=== PATIENT | female | born 1990 | race Caucasian/White ===

== ENCOUNTER 2018-02-09 15:20 | Emergency (ER) | payer MEDICAID, OTHER ==
[~2018-02-09] VITALS: Ht 175.3 cm; Wt 96.8 kg
[~2018-02-09 15:20] MED LIST: CLA10T PO; NAPR-232 PO; OMEP40CA37 PO; PRED10TA PO
[2018-02-09] MEDS ORDERED: normal saline 1000ML IV soln IV ONE (15:45)
[2018-02-09 16:42] LABS: BASOPHILS % (AUTO) 0.1 % (0-1); EOSINOPHILS % (AUTO) 0 % (0-6); HEMATOCRIT 37.4 % (35.0-45.0); HEMOGLOBIN 12.4 g/dl (12.0-16.0); LYMPHOCYTES # (AUTO) 0.5 X10'3 (1.1-4.8); LYMPHOCYTES % (AUTO) 8.5 % (21-51); MEAN CORPUSCULAR HEMOGLOBIN 27.7 PG (27.0-31.0); MEAN CORPUSCULAR HGB CONC 33.2 % (33.0-36.5); MEAN CORPUSCULAR VOLUME 83.4 FL (78-98); MEAN PLATELET VOLUME 8.1 FL (7.4-10.4); MONOCYTES # (AUTO) 0.9 X10'3 (0-0.9); MONOCYTES % (AUTO) 15.1 % (2-12); NEUTROPHILS # (AUTO) 4.7 X10'3 (1.8-7.7); NEUTROPHILS % (AUTO) 76.3 % (42-75); PLATELET COUNT 255 X10'3 (140-440); RED BLOOD COUNT 4.48 X10'6 (4.20-5.60); RED CELL DISTRIBUTION WIDTH 14.3 % (11.5-14.5); WHITE BLOOD COUNT 6.2 X10'3 (4.5-11.0)
[2018-02-09 16:55] LABS: ALANINE AMINOTRANSFERASE 25 U/L (12-78); ALKALINE PHOSPHATASE 68 IU/L (46-116); ANION GAP 15 (8-16); ASPARTATE AMINO TRANSFERASE 18 U/L (10-37); BILIRUBIN,TOTAL 0.2 MG/DL (0.1-1.0); BLOOD UREA NITROGEN 13 MG/DL (7-18); BUN/CREATININE RATIO 18.3 (6.6-38.0); CALCIUM 8.8 MG/DL (8.5-10.1); CHLORIDE 100 MMOL/L (99-107); CREATININE 0.71 MG/DL (0.40-0.90); GLUCOSE 113 MG/DL (70-104); SODIUM 138 MMOL/L (135-145); TOTAL CARBON DIOXIDE 22.8 MMOL/L (24-32); TOTAL PROTEIN 7.9 G/DL (6.4-8.2); eGFR > 90 ML/MIN
[2018-02-09] MEDS ORDERED: acetaminophen 325mg tablet PO STA (17:01)
[2018-02-09] MEDS ORDERED: potassium Cl oral solution 20 MEQ/15 ML PO ONE (17:35)
[2018-02-09] MEDS ORDERED: oseltamivir phos 75mg capsule PO ONE (17:35)
[2018-02-09] MEDS ORDERED: TAM75C PO (18:41)
[2018-02-09 20:09] VITALS: BP 129/70
== END 2018-02-09 20:10 | disposition home or self-care (01) ==
LOC: ER 15:21
DX: J11.1 Influenza due to unidentified influenza virus with other respiratory manifestations (principal); J45.909 Unspecified asthma, uncomplicated; R19.7 Diarrhea, unspecified; R11.2 Nausea with vomiting, unspecified; Z56.0 Unemployment, unspecified
CPT/HCPCS: 36415; 71045; 80053; 83605; 85025; 87040; 87502; 87503; 93005; 99284

== ENCOUNTER 2019-11-21 12:21 | Emergency (ER) | payer MEDICAID ==
[~2019-11-21] VITALS: Ht 175.3 cm; Wt 113.0 kg
[~2019-11-21 12:21] MED LIST changes: +OMEP40CA13 PO; -OMEP40CA37 PO
[2019-11-21 12:54] VITALS: BP 173/108
== END 2019-11-21 15:03 | disposition home or self-care (01) ==
LOC: ER 12:22
DX: S99.811A Other specified injuries of right ankle, initial encounter (principal); S61.212A Laceration without foreign body of right middle finger without damage to nail, initial encounter; M25.571 Pain in right ankle and joints of right foot; M25.561 Pain in right knee; J45.909 Unspecified asthma, uncomplicated; Z56.0 Unemployment, unspecified; Z79.899 Other long term (current) drug therapy; X58.XXXA Exposure to other specified factors, initial encounter; Y93.89 Activity, other specified; Y92.89 Other specified places as the place of occurrence of the external cause; Y99.8 Other external cause status
CPT/HCPCS: 73564; 73610; 99284

== ENCOUNTER 2021-06-30 00:51 | Emergency (ER) | payer MEDICAID, OTHER ==
[~2021-06-30] VITALS: Ht 175.3 cm; Wt 95.5 kg
[~2021-06-30 00:51] MED LIST changes: +ALBU18HF2 INH; -OMEP40CA13 PO; +OMEP40CA21 PO
[2021-06-30] MEDS ORDERED: diphenhydrAMINE 25mg capsule PO ONE (01:10)
--- NOTE | 2021-06-30 01:38 | NUR ---
pt stated im just going to have my take me home. pt education given on etoh use. pt left er. informed
[2021-06-30 01:44] VITALS: BP 111/74
== END 2021-06-30 01:52 | disposition left against medical advice (07) ==
LOC: ER 00:54
DX: R06.02 Shortness of breath (principal); Z53.21 Procedure and treatment not carried out due to patient leaving prior to being seen by health care provider
CPT/HCPCS: Q0163

== ENCOUNTER 2021-11-28 23:59 | Emergency (ER) | payer SELFPAY ==
[~2021-11-28] VITALS: Ht 177.8 cm; Wt 104.2 kg
[2021-11-29 00:28] VITALS: BP 120/82
[2021-11-29] MEDS ORDERED: LORA-269 PO (04:07)
[2021-11-29] MEDS ORDERED: ketorolac trometh inj. 60 MG/2 ML VIAL IM ONE (04:25)
[2021-11-29 05:04] LABS: CLARITY,URINE CLEAR (Clear); COLOR,URINE YELLOW (Yellow); GLUCOSE, URINE NEGATIVE (Neg); KETONES,URINE NEGATIVE (Neg); LEUKOCYTE ESTERASE ,URINE NEGATIVE (Neg); NITRITES, URINE NEGATIVE (Neg); OCCULT BLOOD,URINE NEGATIVE (Neg); PROTEIN,URINE NEGATIVE (Neg); UROBILINOGEN,URINE 0.2 E.U/dL (0.2-1.0)
[2021-11-29 05:05] LABS: UA COLLECTION TYPE CLN CATCH MIDSTREAM
== END 2021-11-29 04:39 | disposition home or self-care (01) ==
LOC: ER 11-29
DX: F41.9 Anxiety disorder, unspecified (principal); F10.920 Alcohol use, unspecified with intoxication, uncomplicated; G89.29 Other chronic pain; M54.9 Dorsalgia, unspecified; J45.909 Unspecified asthma, uncomplicated; Z79.899 Other long term (current) drug therapy
CPT/HCPCS: 81003; 99283

== ENCOUNTER 2021-12-03 00:52 | Emergency (ER) | payer SELFPAY ==
[~2021-12-03] VITALS: Ht 175.3 cm; Wt 113.6 kg
[~2021-12-03 00:52] MED LIST changes: +LORA-269 PO
[2021-12-03 06:06] VITALS: BP 119/78
== END 2021-12-03 06:09 | disposition home or self-care (01) ==
LOC: ER 00:53
DX: F10.129 Alcohol abuse with intoxication, unspecified (principal); J45.909 Unspecified asthma, uncomplicated; G89.29 Other chronic pain; Z56.0 Unemployment, unspecified; Z88.8 Allergy status to other drugs, medicaments and biological substances; Z79.899 Other long term (current) drug therapy; W19.XXXA Unspecified fall, initial encounter; Y93.89 Activity, other specified; Y92.89 Other specified places as the place of occurrence of the external cause; Y99.8 Other external cause status; Y90.9 Presence of alcohol in blood, level not specified
CPT/HCPCS: 70450; 99284

== ENCOUNTER 2023-03-06 14:53 | Emergency (ER) | payer SELFPAY ==
[~2023-03-06] VITALS: Ht 175.3 cm; Wt 104.5 kg
[~2023-03-06 14:53] MED LIST changes: +NAPR-1154 PO
[2023-03-06 15:12] LABS: BASOPHILS # (AUTO) 0.1 X10'3 (0-0.2); BASOPHILS % (AUTO) 0.5 % (0-1); EOSINOPHILS # (AUTO) 0.3 X10'3 (0-0.9); EOSINOPHILS % (AUTO) 2.4 % (0-6); HEMATOCRIT 39.5 % (35.0-45.0); HEMOGLOBIN 12.9 g/dl (12.0-16.0); LYMPHOCYTES # (AUTO) 2.4 X10'3 (1.1-4.8); LYMPHOCYTES % (AUTO) 21.3 % (21-51); MEAN CORPUSCULAR HEMOGLOBIN 28.4 PG (27.0-31.0); MEAN CORPUSCULAR HGB CONC 32.7 g/dL (33.0-36.5); MEAN CORPUSCULAR VOLUME 86.8 FL (78-98); MEAN PLATELET VOLUME 7.7 FL (7.4-10.4); MONOCYTES # (AUTO) 0.7 X10'3 (0-0.9); MONOCYTES % (AUTO) 6.5 % (2-12); NEUTROPHILS # (AUTO) 7.7 X10'3 (1.8-7.7); NEUTROPHILS % (AUTO) 69.3 % (42-75); PLATELET COUNT 308 X10'3 (140-440); RED BLOOD COUNT 4.55 X10'6 (4.20-5.60); RED CELL DISTRIBUTION WIDTH 14.3 % (11.5-14.5); WHITE BLOOD COUNT 11.1 X10'3 (4.5-11.0)
[2023-03-06 15:27] VITALS: BP 150/90; PULSE 65; RESP 16; TEMP 97.9; O2SAT 97
[2023-03-06 15:27] LABS: ALANINE AMINOTRANSFERASE 29 U/L (12-78); ALBUMIN 3.7 G/DL (3.4-5.0); ALBUMIN/GLOBULIN RATIO 0.9 (1.1-1.5); ALKALINE PHOSPHATASE 68 IU/L (46-116); ANION GAP 6 (8-16); ASPARTATE AMINO TRANSFERASE 18 U/L (10-37); BILIRUBIN,TOTAL 0.4 MG/DL (0.1-1.0); BLOOD UREA NITROGEN 11 MG/DL (7-18); BUN/CREATININE RATIO 14.9 (10.0-20.0); CALCIUM 8.8 MG/DL (8.5-10.1); CHLORIDE 103 MMOL/L (99-107); CREATININE 0.74 MG/DL (0.40-0.90); GLUCOSE 88 MG/DL (70-104); POTASSIUM 3.7 MMOL/L (3.5-5.1); SODIUM 139 MMOL/L (135-145); TOTAL CARBON DIOXIDE 29.6 MMOL/L (24-32); TOTAL PROTEIN 7.8 G/DL (6.4-8.2); eGFR 90 ML/MIN
[2023-03-06 15:34] LABS: PRO BRAIN NATRIURETIC PEPTIDE 52 PG/ML (0-125)
== END 2023-03-06 19:48 | disposition home or self-care (01) ==
LOC: ER 14:54
DX: R06.00 Dyspnea, unspecified (principal); J45.909 Unspecified asthma, uncomplicated; G89.29 Other chronic pain; M81.0 Age-related osteoporosis without current pathological fracture; Z56.0 Unemployment, unspecified; Z79.899 Other long term (current) drug therapy; Z88.8 Allergy status to other drugs, medicaments and biological substances
CPT/HCPCS: 36415; 80053; 83880; 84484; 85025; 93005; 99283; 99284

== ENCOUNTER 2024-01-18 12:47 | Emergency (ER) | payer SELFPAY ==
[~2024-01-18] VITALS: Ht 175.3 cm; Wt 110.8 kg
[2024-01-18 12:57] VITALS: BP 125/61; PULSE 69; RESP 18; TEMP 97.4; O2SAT 96
[2024-01-18 13:25] LABS: BASOPHILS % (AUTO) 0.3 % (0-1); EOSINOPHILS # (AUTO) 0.2 X10'3 (0-0.9); EOSINOPHILS % (AUTO) 1.3 % (0-6); HEMOGLOBIN 11.6 g/dl (12.0-16.0); LYMPHOCYTES # (AUTO) 1.2 X10'3 (1.1-4.8); LYMPHOCYTES % (AUTO) 7.2 % (21-51); MEAN CORPUSCULAR HEMOGLOBIN 29.4 PG (27.0-31.0); MEAN CORPUSCULAR HGB CONC 33.1 g/dL (33.0-36.5); MEAN PLATELET VOLUME 7.9 FL (7.4-10.4); MONOCYTES # (AUTO) 1.3 X10'3 (0-0.9); MONOCYTES % (AUTO) 7.9 % (2-12); NEUTROPHILS # (AUTO) 13.4 X10'3 (1.8-7.7); NEUTROPHILS % (AUTO) 83.3 % (42-75); PLATELET COUNT 245 X10'3 (140-440); RED BLOOD COUNT 3.93 X10'6 (4.20-5.60); RED CELL DISTRIBUTION WIDTH 14.8 % (11.5-14.5); WHITE BLOOD COUNT 16.1 X10'3 (4.5-11.0)
[2024-01-18 13:53] LABS: ALANINE AMINOTRANSFERASE 20 U/L (12-78); ALBUMIN 3.6 G/DL (3.4-5.0); ALKALINE PHOSPHATASE 53 IU/L (46-116); ASPARTATE AMINO TRANSFERASE 12 U/L (10-37); BILIRUBIN,TOTAL 0.3 MG/DL (0.1-1.0); BLOOD UREA NITROGEN 10 MG/DL (7-18); BUN/CREATININE RATIO 16.7 (10.0-20.0); CALCIUM 8.2 MG/DL (8.5-10.1); GLUCOSE 104 MG/DL (70-104); LIPASE 15 U/L (16-77); TOTAL CARBON DIOXIDE 25.5 MMOL/L (24-32); TOTAL PROTEIN 7.3 G/DL (6.4-8.2); eCRCL 138 ML/MIN; eGFR > 90 ML/MIN
[2024-01-18 13:55] LABS: ANION GAP 8 (8-16); CHLORIDE 105 MMOL/L (99-107); POTASSIUM 3.7 MMOL/L (3.5-5.1); SODIUM 138 MMOL/L (135-145)
== END 2024-01-18 16:10 | disposition left against medical advice (07) ==
LOC: ER 12:48
DX: R10.12 Left upper quadrant pain (principal); Z53.21 Procedure and treatment not carried out due to patient leaving prior to being seen by health care provider
CPT/HCPCS: 36415; 80053; 83690; 85025